=== PATIENT | male | born 1965 | race Caucasian/White ===

== ENCOUNTER 2022-01-22 07:21 | Inpatient (IN) | payer OTHER ==
[2022-01-22 08:23] VITALS: BMI 26.6
[2022-01-22] MEDS ORDERED: ONDANSETRON *ODT* 4 MG TABLET SL PRN (09:27)
[2022-01-22] MEDS ORDERED: LOPERAMIDE HCL 2 MG CAPSULE PO PRN (09:27)
[2022-01-22] MEDS ORDERED: NALOXONE HCL (KLOXXADO) 8 MG SPRAY NS PRN (09:27)
[2022-01-22] MEDS ORDERED: DICYCLOMINE HCL 10 MG CAPSULE PO PRN (09:27)
[2022-01-22] MEDS ORDERED: BENZOCAINE/MENTHOL (CHLORASEPTIC ) LOZENGE MM PRN (09:27)
[2022-01-22] MEDS ORDERED: MAGNESIUM HYDROX 2400MG/30ML ORAL SUSPENSION 30 ML CUP PO PRN (09:27)
[2022-01-22] MEDS ORDERED: cloNIDine HCL 0.1 MG TABLET PO PRN (09:27)
[2022-01-22] MEDS ORDERED: chlordiazePOXIDE HCL 25 MG CAPSULE PO PRN (09:27)
[2022-01-22] MEDS ORDERED: IBUPROFEN 400 MG TABLET (FP) PO PRN (09:27)
[2022-01-22] MEDS ORDERED: MAGNESIUM CITRATE 300 ML BOTTLE PO PRN (09:27)
[2022-01-22] MEDS ORDERED: NICOTINE 10 MG CARTRIDGE (INHALER) IH PRN (09:27)
[2022-01-22] MEDS ORDERED: methaDONE HCL 10 MG TABLET (FOR DETOX USE ONLY) PO ONE (09:27)
[2022-01-22] MEDS ORDERED: ACETAMINOPHEN 325 MG TABLET (FP) PO PRN (09:27)
[2022-01-22] MEDS ORDERED: BISMUTH SUBSALICYLATE 524 MG/30 ML PO PRN (09:27)
[2022-01-22] MEDS ORDERED: MAG HYDROX/AL HYDROX/SIMETH 30 ML UNIT-DOSE CUP PO PRN (09:27)
[2022-01-22] MEDS ORDERED: methaDONE HCL 10 MG TABLET (FOR DETOX USE ONLY) ONE (09:58)
[2022-01-22] MEDS ORDERED: hydrOXYzine PAMOATE 25 MG CAPSULE (FP) PO ONE (09:59)
[2022-01-22] MEDS: hydrOXYzine PAMOATE 25 MG CAPSULE (FP) PO SCH ×4 (10:03→22:23)
[2022-01-22] MEDS: NICOTINE 21 MG/24 HOURS TOPICAL PATCH TD SCH (10:07)
[2022-01-22] MEDS: PRENATAL VITAMINS W/ FOLIC ACID TABLET (FP) PO SCH (12:34)
[2022-01-22] MEDS: PANTOPRAZOLE 20 MG TABLET PO SCH (12:35)
[2022-01-22] MEDS: chlordiazePOXIDE HCL 25 MG CAPSULE PO SCH ×3 (12:35→22:23)
[2022-01-22 15:15] LABS: HEMATOCRIT 39.2 % (35.4-49); HEMOGLOBIN 12.8 GM/dL (11.7-16.9); MCH 28.7 pg (25.7-33.7); MCHC 32.6 g/dl (32.0-35.9); MEAN CELL VOLUME 88.1 fl (80-96); PLATELET COUNT 315 10^3/uL (134-434); RBC 4.45 M/mm3 (4.00-5.60); RDW 15.5 % (11.9-15.9); WHITE BLOOD COUNT 7.5 K/mm3 (4.0-10.0)
[2022-01-22 15:18] LABS: CALCIUM 8.9 mg/dL (8.5-10.1)
[2022-01-22 15:20] LABS: ALBUMIN 3.4 g/dl (3.4-5.0); BLOOD UREA NITROGEN 18.1 mg/dL (7-18)
[2022-01-22 15:23] LABS: CREATININE 1.1 mg/dL (0.55-1.3)
[2022-01-22 15:24] LABS: BILIRUBIN,TOTAL 0.4 mg/dL (0.2-1); TOT PROT 6.7 g/dl (6.4-8.2)
[2022-01-22] MEDS: THIAMINE HCL 100 MG TABLET (FP) PO SCH (22:23)
[2022-01-22] MEDS: BUDESONIDE/FORMETEROL FUMARATE 80/4.5 mcg INHALER IH SCH (22:23)
[2022-01-22] MEDS: MELATONIN 5 MG TABLETS PO SCH (22:23)
[2022-01-23] MEDS: chlordiazePOXIDE HCL 25 MG CAPSULE PO SCH ×4 (05:11→23:05)
[2022-01-23] MEDS: hydrOXYzine PAMOATE 25 MG CAPSULE (FP) PO SCH ×5 (05:12→23:04)
[2022-01-23] MEDS ORDERED: methaDONE HCL 10 MG TABLET (FOR DETOX USE ONLY) ONE (09:24)
[2022-01-23] MEDS: PRENATAL VITAMINS W/ FOLIC ACID TABLET (FP) PO SCH (10:29)
[2022-01-23] MEDS: PANTOPRAZOLE 20 MG TABLET PO SCH (10:29)
[2022-01-23] MEDS: NICOTINE 21 MG/24 HOURS TOPICAL PATCH TD SCH (10:30)
[2022-01-23] MEDS: BUDESONIDE/FORMETEROL FUMARATE 80/4.5 mcg INHALER IH SCH ×2 (10:30→23:04)
[2022-01-23] MEDS: ACETAMINOPHEN 325 MG TABLET (FP) PO PRN (18:58)
[2022-01-23] MEDS: MELATONIN 5 MG TABLETS PO SCH (23:04)
[2022-01-23] MEDS: THIAMINE HCL 100 MG TABLET (FP) PO SCH (23:04)
[2022-01-24] MEDS: hydrOXYzine PAMOATE 25 MG CAPSULE (FP) PO SCH ×5 (06:04→22:29)
[2022-01-24] MEDS: chlordiazePOXIDE HCL 25 MG CAPSULE PO SCH ×4 (06:04→22:29)
[2022-01-24] MEDS ORDERED: methaDONE HCL 10 MG TABLET (FOR DETOX USE ONLY) PO ONE (10:00)
[2022-01-24] MEDS: PRENATAL VITAMINS W/ FOLIC ACID TABLET (FP) PO SCH (10:16)
[2022-01-24] MEDS: NICOTINE 21 MG/24 HOURS TOPICAL PATCH TD SCH (10:16)
[2022-01-24] MEDS: PANTOPRAZOLE 20 MG TABLET PO SCH (10:17)
[2022-01-24] MEDS: BUDESONIDE/FORMETEROL FUMARATE 80/4.5 mcg INHALER IH SCH ×2 (10:17→22:31)
[2022-01-24] MEDS: IBUPROFEN 600 MG TABLET (FP) PO PRN (15:52)
[2022-01-24] MEDS: ACETAMINOPHEN 325 MG TABLET (FP) PO PRN (16:54)
[2022-01-24] MEDS ORDERED: BENZOCAINE 20 % GEL TUBE MM PRN (17:28)
[2022-01-24] MEDS: THIAMINE HCL 100 MG TABLET (FP) PO SCH (22:29)
[2022-01-24] MEDS: MELATONIN 5 MG TABLETS PO SCH (22:29)
[2022-01-25] MEDS ORDERED: chlordiazePOXIDE HCL 10 MG CAPSULE PO PRN
[2022-01-25] MEDS: chlordiazePOXIDE HCL 10 MG CAPSULE PO SCH ×4 (05:56→22:12)
[2022-01-25] MEDS: hydrOXYzine PAMOATE 25 MG CAPSULE (FP) PO SCH ×5 (05:56→22:12)
[2022-01-25] MEDS: IBUPROFEN 600 MG TABLET (FP) PO PRN (05:58)
[2022-01-25] MEDS ORDERED: methaDONE HCL 10 MG TABLET (FOR DETOX USE ONLY) ONE (08:49)
[2022-01-25] MEDS: BUDESONIDE/FORMETEROL FUMARATE 80/4.5 mcg INHALER IH SCH ×2 (10:08→22:14)
[2022-01-25] MEDS: PRENATAL VITAMINS W/ FOLIC ACID TABLET (FP) PO SCH (10:08)
[2022-01-25] MEDS: NICOTINE 21 MG/24 HOURS TOPICAL PATCH TD SCH (10:09)
[2022-01-25] MEDS: PANTOPRAZOLE 20 MG TABLET PO SCH (10:09)
[2022-01-25] MEDS: ALBUTEROL SO4 HFA INHALER IH PRN (14:03)
[2022-01-25] MEDS: ACETAMINOPHEN 325 MG TABLET (FP) PO PRN (17:41)
[2022-01-25] MEDS: THIAMINE HCL 100 MG TABLET (FP) PO SCH (22:12)
[2022-01-25] MEDS: MELATONIN 5 MG TABLETS PO SCH (22:12)
[2022-01-26] MEDS: chlordiazePOXIDE HCL 10 MG CAPSULE PO SCH ×2 (05:59→17:33)
[2022-01-26] MEDS: hydrOXYzine PAMOATE 25 MG CAPSULE (FP) PO SCH ×5 (06:00→21:40)
[2022-01-26] MEDS ORDERED: methaDONE HCL 10 MG TABLET (FOR DETOX USE ONLY) PO ONE (10:00)
[2022-01-26] MEDS: NICOTINE 21 MG/24 HOURS TOPICAL PATCH TD SCH (10:06)
[2022-01-26] MEDS: PRENATAL VITAMINS W/ FOLIC ACID TABLET (FP) PO SCH (10:06)
[2022-01-26] MEDS: PANTOPRAZOLE 20 MG TABLET PO SCH (10:06)
[2022-01-26] MEDS: BUDESONIDE/FORMETEROL FUMARATE 80/4.5 mcg INHALER IH SCH ×2 (10:08→21:41)
[2022-01-26] MEDS: ALBUTEROL SO4 HFA INHALER IH PRN (14:01)
[2022-01-26] MEDS: METHOCARBAMOL 500 MG TABLET PO PRN (14:02)
[2022-01-26] MEDS: ACETAMINOPHEN 325 MG TABLET (FP) PO PRN (20:03)
[2022-01-26] MEDS: THIAMINE HCL 100 MG TABLET (FP) PO SCH (21:40)
[2022-01-26] MEDS: MELATONIN 5 MG TABLETS PO SCH (21:40)
[2022-01-27] MEDS ORDERED: chlordiazePOXIDE HCL 10 MG CAPSULE PO ONE (05:00)
[2022-01-27] MEDS: hydrOXYzine PAMOATE 25 MG CAPSULE (FP) PO SCH ×5 (06:26→23:03)
[2022-01-27] MEDS ORDERED: methaDONE HCL 10 MG TABLET (FOR DETOX USE ONLY) PO ONE (10:00)
[2022-01-27] MEDS: PANTOPRAZOLE 20 MG TABLET PO SCH (11:25)
[2022-01-27] MEDS: BUDESONIDE/FORMETEROL FUMARATE 80/4.5 mcg INHALER IH SCH ×2 (11:26→23:02)
[2022-01-27] MEDS: PRENATAL VITAMINS W/ FOLIC ACID TABLET (FP) PO SCH (11:27)
[2022-01-27] MEDS: NICOTINE 21 MG/24 HOURS TOPICAL PATCH TD SCH (11:27)
[2022-01-27] MEDS: METHOCARBAMOL 500 MG TABLET PO PRN (18:47)
[2022-01-27] MEDS: ALBUTEROL SO4 HFA INHALER IH PRN (23:02)
[2022-01-27] MEDS: THIAMINE HCL 100 MG TABLET (FP) PO SCH (23:03)
[2022-01-27] MEDS: MELATONIN 5 MG TABLETS PO SCH (23:03)
[2022-01-27] MEDS: ACETAMINOPHEN 325 MG TABLET (FP) PO PRN (23:29)
[2022-01-27] MEDS: BENZOCAINE 20 % GEL TUBE MM PRN (23:30)
[2022-01-28] MEDS: hydrOXYzine PAMOATE 25 MG CAPSULE (FP) PO SCH (07:08)
[2022-01-28] MEDS: BENZOCAINE 20 % GEL TUBE MM PRN (09:00)
[2022-01-28] MEDS: ACETAMINOPHEN 325 MG TABLET (FP) PO PRN (09:01)
[2022-01-28] MEDS: PANTOPRAZOLE 20 MG TABLET PO SCH (11:38)
[2022-01-28] MEDS: BUDESONIDE/FORMETEROL FUMARATE 80/4.5 mcg INHALER IH SCH ×2 (11:40→22:29)
[2022-01-28] MEDS: PRENATAL VITAMINS W/ FOLIC ACID TABLET (FP) PO SCH (11:41)
[2022-01-28] MEDS: NICOTINE 21 MG/24 HOURS TOPICAL PATCH TD SCH (11:41)
[2022-01-28] MEDS ORDERED: hydrOXYzine PAMOATE 50 MG CAPSULE (FP) PO ONE (13:30)
[2022-01-28] MEDS: METHOCARBAMOL 500 MG TABLET PO PRN ×2 (13:38→19:12)
[2022-01-28 18:03] VITALS: PULSE 82
[2022-01-28] MEDS ORDERED: hydrOXYzine PAMOATE 50 MG CAPSULE (FP) PO PRN (19:01)
[2022-01-28 21:39] VITALS: BP 113/69; TEMP 97.7
[2022-01-28] MEDS: THIAMINE HCL 100 MG TABLET (FP) PO SCH (22:29)
[2022-01-28] MEDS: MELATONIN 5 MG TABLETS PO SCH (22:29)
[2022-01-28] MEDS: IBUPROFEN 600 MG TABLET (FP) PO PRN (22:30)
== END 2022-01-29 06:16 | disposition home or self-care (01) | DRG 773 ==
LOC: YASAS 07:21 → Y3N 09:42
PROVIDERS: ADMIT Allergy & Immunology; ATTEND Surgery
PROC: HZ2ZZZZ Detoxification Services for Substance Abuse Treatment (ICD-10-PCS; principal; 2022-01-22)
DX: F11.23 Opioid dependence with withdrawal (principal); F10.230 Alcohol dependence with withdrawal, uncomplicated; F14.20 Cocaine dependence, uncomplicated; F12.20 Cannabis dependence, uncomplicated; F17.210 Nicotine dependence, cigarettes, uncomplicated; F19.282 Other psychoactive substance dependence with psychoactive substance-induced sleep disorder; F19.280 Other psychoactive substance dependence with psychoactive substance-induced anxiety disorder; J44.9 Chronic obstructive pulmonary disease, unspecified; K21.9 Gastro-esophageal reflux disease without esophagitis; K08.89 Other specified disorders of teeth and supporting structures; M19.90 Unspecified osteoarthritis, unspecified site; Z20.822 Contact with and (suspected) exposure to COVID-19
CPT/HCPCS: 36415; 80053; 85027; 86780; 87811; 93005; 93010; C9803-CS; U0003; U0005